=== PATIENT | male | born 1950 | race African-American/Black ===

== ENCOUNTER 2023-08-21 12:14 | Emergency (ER) | payer MEDICARE ==
[~2023-08-21] VITALS: Ht 193 cm; Wt 59.1 kg
[2023-08-21 12:27] VITALS: TEMP 98.3
[2023-08-21 12:45] LABS: BASO % 0.2 % (0.0-2.0); EOS # 0.2 K/mm3 (0.0-0.7); EOS % 4.1 % (0.0-4.0); GRAN # 2.2 K/mm3 (1.4-6.5); GRAN % 44.2 % (42.2-75.2); HEMATOCRIT 38.3 % (42.0-52.0); HEMOGLOBIN 12.7 g/dl (13.5-18.0); LYMPH # 1.8 K/mm3 (1.2-3.4); LYMPH % 36.3 % (20.0-51.0); MEAN CELL VOLUME 89 fl (80.0-100.0); MEAN CORPUSCULAR HEMOGLOBIN 30 pg (27-31); MEAN CORPUSCULAR HGB CONC 33 g/dl (33.0-37.0); MEAN PLATELET VOLUME 9.2 fl (7.4-10.4); MONO # 0.8 K/mm3 (0.1-0.6); PLATELET COUNT 210 K/mm3 (130-400); RED BLOOD COUNT 4.29 M/mm3 (4.20-5.60); REDCELL DISTRIBUTION WIDTH-CV 14.3 % (11.5-14.5)
[2023-08-21 13:04] LABS: ALANINE AMINOTRANSFERASE 10 U/L (0-55); ALBUMIN 3.8 g/dL (3.4-4.8); ALKALINE PHOSPHATASE 161 U/L (40-150); ANION GAP 12 mmol/L (7-16); AST,SGOT 18 U/L (5-34); BILIRUBIN,TOTAL 0.5 mg/dL (0.2-1.2); BLOOD UREA NITROGEN 12 mg/dL (8-26); CALCIUM 9.3 mg/dL (8.4-10.2); CHLORIDE 103 mEq/L (98-107); CREATININE, serum 0.82 mg/dL (0.72-1.25); GLUCOSE 116 mg/dL (70-99); POTASSIUM 3.7 mEq/L (3.5-4.5); SODIUM 137 mEq/L (136-145); TOTAL PROTEIN 7.4 g/dl (6.2-8.1)
[2023-08-21 13:10] LABS: TROPONIN-I < 0.010 ng/mL (0.00-0.033)
[2023-08-21] MEDS ORDERED: Iohexol 300 - 100 ML VIAL IV ONE (13:51)
[2023-08-21] MEDS ORDERED: NS 100 ML IV SCH (13:52)
[2023-08-21 15:01] LABS: PH 5.5 (5.0-8.5); URINE APPEARANCE CLEAR (CLEAR/HAZY); URINE BLOOD NEGATIVE (NEGATIVE); URINE COLOR YELLOW (YELLOW); URINE GLUCOSE NEGATIVE (NEGATIVE); URINE KETONE TRACE (NEGATIVE); URINE NITRATE NEGATIVE (NEGATIVE); URINE PROTEIN(semi-quant) NEGATIVE (NEGATIVE)
[2023-08-21 15:34] LABS: COLLECTION METHOD CLEAN CATCH
[2023-08-21 16:00] VITALS: BP 139/96; PULSE 87
== END 2023-08-21 16:00 | disposition home or self-care (01) ==
LOC: COL.ER 12:14
PROVIDERS: Nurse Practitioner
DX: R53.1 Weakness (principal); R06.00 Dyspnea, unspecified
CPT/HCPCS: Q9967